=== PATIENT | female | born 1970 | race Caucasian/White ===

== ENCOUNTER 2017-03-18 16:27 | Emergency (ER) | payer OTHER ==
[~2017-03-18] VITALS: Ht 152.4 cm; Wt 89.4 kg
[~2017-03-18 16:27] MED LIST: BACTRIM DS TAB1 EACH PO; IBUPROFEN800 M1 PO; METFORMIN HCL500 M3 PO; NORCO 5-325 TA1 EACH PO
--- NOTE | 2017-03-18 18:06 | ED GI/GU/ABDOMINAL COMPLAINT ---
History of Present Illness General Chief Complaint: Abdominal Pain/Flank Pain Stated Complaint: ABD PAIN ? KIDNEY STONE PER PMD Source: patient, old records Exam Limitations: no limitations Vital Signs & Intake/Output Vital Signs & Intake/Output Vital Signs Date Time Temp Pulse Resp B/P Pulse O2 O2 Flow FiO2 Ox Delivery Rate 03/18 2208 98.8 72 16 110/59 99 Room Air 03/18 1830 Room Air 03/18 1639 98.1 92 18 145/88 99 Room Air Allergies Coded Allergies: NO KNOWN ALLERGIES (11/18/16) Triage Note: SENT BY DR BARTHOLOMEW TO RULE OUT KIDNEY STONES, PT COMPLAINS OF R FLANK PAIN AND BLOOD WHEN SHE WIPES. Triage Nurses Notes Reviewed? yes LMP (ages 10-50): hysterectomy ? N Is pt currently ? No Onset: Abrupt Duration: day(s): (3), constant Timing: recent history Quality/Severity: cramping, moderate, sharpness Severity Numbers: 8 Location: right flank, right lower quadrant Radiation: flank Activities at Onset: none Prior Abdominal Problems: similar symptoms No Modifying Factors: none Associated Symptoms: DENIES HPI: 46-year-old female with history of ovarian cyst hysterectomy cholecystectomy gastric bypass 1 month ago presents emergency room complaining of right lower quadrant pain radiating to the right flank and lower back for the past 3 days associated hematuria. Patient states that she called Dr. Bartholomew referred her to the ER for workup for kidney stones. She has a history of similar episodes which brought her to the ER in November and was seen by myself. She was diagnosed with an adnexal cyst at the time requiring exploratory laparotomy eye doctor Puma her PROGRAM ADMINISTRATOR. The patient denies dysuria urgency frequency. She denies nausea vomiting or diarrhea no fever or chills no vaginal bleeding or discharge (ELVIA CHATTERJEE) Reconcile Medications Oxycodone HCl/Acetaminophen (Percocet 5-325 MG Tablet) 5 MG-325 MG TABLET 1 TAB PO 4 TIMES/DAY pain (ONEIL PERDOMO) Past History Travel History Traveled to [place] past 21 day No Medical History Any Pertinent Medical History? see below for history Neurological: NONE EENT: NONE Cardiovascular: NONE Respiratory: NONE Gastrointestinal: NONE Hepatic: NONE Renal: NONE Musculoskeletal: NONE Psychiatric: NONE Endocrine: NIDDM Blood Disorders: NONE Cancer(s): NONE PROGRAM ADMINISTRATOR/Reproductive: OVARIAN CYST Surgical History Surgical History: cholecystectomy, hysterectomy Psychosocial History Who do you live with Family Services at Home None What is your primary language Dominican Tobacco Use: Never used ETOH Use: denies use Illicit Drug Use: denies illicit drug use Family History Hx Contributory? No (ELVIA CHATTERJEE) Review of Systems Review of Systems Constitutional: Reports: see HPI. All Other Systems: Reviewed and Negative Comments Review of systems: See HPI, All other systems negative. Constitutional, no chills no fever, no malaise HEENT: No visual changes no sore throat no congestion Cardiovascular: No chest pain , no palpitation , Skin, no jaundice no rashes, no change in skin Respiratory: No dyspnea no cough no sputum GI: No nausea no vomiting, no diarrhea, no bloating/constipation : No dysuria hematuria, no frequency, no discharge Muscle skeletal: No joint pain, no back pain, no neck pain, Neurologic: No numbnessno headache Psych: No stress Heme/endocrine: No bruising no bleeding Immunology: No lymphadenopathy (ELVIA CHATTERJEE) Physical Exam Physical Exam General Appearance: well developed/nourished, no apparent distress, alert, awake Gastrointestinal: soft Comments: Well-developed well-nourished person in no acute distress HEENT: Normal EENT exam; PERRL, EOMI, HEAD is atraumatic. moist mucous membranes. Neck: Supple,, normal range of motion Back: Nontender, no CVA tenderness. Full range of motion Cardiovascular: Regular rate and rhythms no murmurs rubs Respiratory: No respiratory distress. Patient speaking in full complete sentences. Breath sounds clear to auscultation bilaterally: NO W/R/R Abdomen: Soft, nontender nondistended, no appreciable organomegaly. Normal bowel sounds. No rebound/guarding, No appreciable enlargement of the abdominal aorta, No ascites. Extremity: No edema, full range of motion of extremities Neuro: Alert oriented x3, motor sensory normal, There were no obvious focal neurologic abnormalities. Skin: No appreciable rash on exposed skin, skin is warm and dry. Psych: Mood and affect is normal, memory and judgment is normal. Core Measures ACS in differential dx? No Severe Sepsis Present: No Septic Shock Present: No (ELVIA CHATTERJEE) Progress Differential Diagnosis: kidney stone, ovarian cyst, ovarian torsion, pancreatitis, PID/cervicitis, perforated viscous, SBO, UTI/pyelo Plan of Care: Orders Procedure Date/time Status Saline Lock 03/18 1813 Active COMPREHENSIVE METABOLIC PANEL 03/18 1813 Complete CBC WITHOUT DIFFERENTIAL 03/18 1813 Complete Add-on Test (ER Only) 03/18 170 Active URINE 03/18 1645 Complete URINALYSIS 03/18 1643 Complete Current Medications Sig/Conrad Start time Last Medication Dose Stop Time Status Admin Morphine Sulfate 2 MG ONCE ONE 03/18 1945 CAN (Morphine) 03/18 1946 Laboratory Tests 03/18/171835: Anion Gap 13, Estimated GFR > 60, BUN/Creatinine Ratio 8.8, Glucose 99, Calcium 9.2, Total Bilirubin 0.7, AST 65 H, ALT 121 H, Alkaline Phosphatase 89, Total Protein 6.8, Albumin 4.0, Globulin 2.8, Albumin/Globulin Ratio 1.4, CBC w Diff NO MAN DIFF REQ, RBC 5.48 H, MCV 80.4 L, MCH 26.5 L, RDW 15.0 H, MPV 9.7, Gran % 62.1, Lymphocytes % 27.4, Monocytes % 8.1, Eosinophils % 1.8, Basophils % 0.6, Absolute Granulocytes 4.0, Absolute Lymphocytes 1.8, Absolute Monocytes 0.5 , Absolute Eosinophils 0.1, Absolute Basophils 0, PUBS MCHC 33.0 03/18/171644: Urinalysis HEAVY H, Urine Color YEL, Urine Clarity HAZY H, Urine pH 7.0, Ur Specific [place] 1.020, Urine Protein TRACE H, Urine Ketones 15 H, Urine Nitrite NEG, Urine Bilirubin NEG@ICTO, Urine Urobilinogen 1.0, Ur Leukocyte Esterase SMALL H, Ur Microscopic SEDIMENT EXAMINED, Urine RBC 1-3, Urine WBC 5- 10 H, Ur Epithelial Cells MOD H, Urine Bacteria MANY H, Urine Mucus FEW, Urine Hemoglobin MOD H, Urine Glucose NEG, Urine Test NEGATIVE PT MED WITH TORADOL 30MG IV, IVNS, CT LABS ORDERED. CASE D/W DR REID Patient reports no improvement in pain with Toradol but discussed with her at length all of her lab results CAT scan findings lab work today and ultrasound ordered (CHRIS BUCHANAN,ELVIA) Diagnostic Imaging: Viewed by Me: CT Scan, Ultrasound. Discussed w/RAD: Radiology Read, CT Scan, Ultrasound. Radiology Impression: PATIENT: SUKHWINDER MCCULLOUGH PRESENT AGE: 46 PATIENT ACCOUNT NO: [id number] : 72 LOCATION: [facility] ORDERING PHYSICIAN: ELVIA BUCHANAN SERVICE DATE: 03/18/17 EXAM TYPE: CAT - CT ABD & PELVIS W/O IV CONTRAS EXAMINATION: CT ABDOMEN AND PELVIS WITHOUT CONTRAST CLINICAL INFORMATION: Right flank pain. COMPARISON: 11/18/2016. TECHNIQUE: Contiguous axial thin section helical images of the abdomen and pelvis were performed without oral or IV contrast. The data set was reformatted in the coronal and sagittal planes and reviewed on an independent workstation. DLP: 760 mGy-cm. FINDINGS: The visualized lung bases are clear. The visualized portions of the heart are unremarkable. The liver is of normal size and diffuse decreased attenuation without focal lesions nor intrahepatic biliary ductal dilation. The patient is status post cholecystectomy. Surgical clips are identified. Surgical chain sutures are identified about the stomach. The spleen, pancreas and right adrenal glands are unremarkable. There is stable fullness to the body of the left adrenal gland. Both kidneys are of normal size and attenuation without hydronephrosis or nephrolithiasis. There is no abdominal free fluid. There is neither mesenteric nor retroperitoneal lymphadenopathy. Normal unopacified loops of small and large bowel are identified. A normal appendix is identified. There is no pelvic free fluid. There is a 2.7 cm right adnexal cyst. The urinary bladder is unremarkable. There is neither pelvic nor inguinal lymphadenopathy. Bone windows: Neither sclerotic nor lytic bone lesions are identified. IMPRESSION: No evidence for acute abdominal or pelvic inflammatory or infectious processes. Hepatic steatosis. Status post cholecystectomy. Stable fullness to the left adrenal gland. 2.7 cm right adnexal cyst. DICTATED BY: VI SANTOS MD DATE/TIME DICTATED:03/18/171824 CAN REPAIRER:DALY DATE/TIME TRANSCRIBED:03/18/171824 CONFIDENTIAL, DO NOT COPY WITHOUT APPROPRIATE AUTHORIZATION. <Electronically signed in Other Vendor System> SIGNED BY: VI SANTOS MD 03/18/171835 Initial ED EKG: none Hand-Off Endorsed To: ONEIL PERDOMO Endorsed Time: 2100 Pending: ultrasound (ELVIA CHATTERJEE) Radiology Impression: SERVICE DATE: 03/18/17 EXAM TYPE: US - US- TRANSVAGINAL EXAMINATIONS: ULTRASOUND PELVIC, COMPLETE AND DOPPLER INTERROGATION CLINICAL INFORMATION: Right lower quadrant pain. COMPARISON: Same day abdominal and pelvic CT. TECHNIQUE: Transabdominal and transvaginal imaging was performed. Transvaginal imaging was performed for further evaluation of the adnexa. Doppler interrogation spectral analysis was performed. FINDINGS: The patient is status post hysterectomy. The right ovary measures 3.7 x 1.6 x 4.2 cm for a volume of 13.4 mL. There is an approximately 4.4 cm cyst adjacent to the right ovary. Normal arterial and venous flow is present. The left ovary is not identified. There is no pelvic free fluid. IMPRESSION: Status post hysterectomy. 4.4 cm cyst adjacent to the right ovary. Normal arterial and venous flow present to the right ovary. Left ovary not identified. DICTATED BY: VI SANTOS MD DATE/TIME DICTATED:03/18/172114 CAN REPAIRER:DALY Comments: 03/18/2017 9:56:51 PM Patient clinically looks well. Nontoxic-appearing. In no apparent distress. Ultrasound report discussed with patient. She is going to follow-up with her OB /PROGRAM ADMINISTRATOR doctor tomorrow. Return if any other concerns. (ONEIL PERDOMO) Departure Departure Disposition: HOME OR SELF CARE Condition: Stable Clinical Impression Primary Impression: Adnexal cyst Secondary Impressions: Abdominal pain Referrals: THANH SALAZAR,JEEVAN Segura (PCP/Family) Departure Forms: Customer Survey General Discharge Information (ELVIA CHATTERJEE) Departure Additional Instructions: Follow-up with your REAL ESTATE ACQUISITION ANALYST doctor. Return if any concerns worsening symptoms. Please go over all results of today's visit with your primary care doctor. Contact your primary care doctor to let them know you were here in the emergency room. There may be nonspecific findings which may not be related to your visit today here in the emergency room but may require further evaluation and chronic monitoring by your primary care doctor. If you had a laceration today the chance of foreign body always remains. You should follow-up with your primary care doctor for recheck in 3-5 days for a wound check. If you had an x-ray done there is a chance that a fracture could have been missed on initial read and you should follow-up with your primary care doctor for repeat x-rays if symptoms persist. If your blood pressure was elevated here in the emergency room please have rechecked by her primary care doctor within the next 48 hours by your primary care doctor. If you were prescribed a narcotic here in the emergency room or any type of controlled substances you're not allowed to drive while taking this medication or operate any type of heavy machinery. Narcotics can make you feel lightheaded dizziness nausea and can cause constipation. You may need to quill picking machine operator a stool softener. Thank you for choosing [facility] emergency room. Please return to the emergency room immediately if you have any other concerns worsening of symptoms. Prescriptions: Current Visit Scripts Oxycodone HCl/Acetaminophen (Percocet 5-325 MG Tablet) 1 TAB PO 4 TIMES/DAY #10 TAB (ONEIL PERDOMO) PA/PHOTOENGRAVING HELPER Co-Sign Statement Statement: ED Attending supervision documentation- [] I saw and evaluated the patient. I have also reviewed all the pertinent lab results and diagnostic results. I agree with the findings and the plan of care as documented in the PA's/PHOTOENGRAVING HELPER's documentation. X[X] I have reviewed the ED Record and agree with the PA's/PHOTOENGRAVING HELPER's documentation. [] Additions or exceptions (if any) to the PAs/PHOTOENGRAVING HELPER's note and plan are summarized below: [] (FRANKLIN SALAZAR,SHERRIE David)
--- NOTE | 2017-03-18 18:36 | CT SCAN REPORT ---
EXAMINATION: CT ABDOMEN AND PELVIS WITHOUT CONTRAST CLINICAL INFORMATION: Right flank pain. COMPARISON: 11/18/2016. TECHNIQUE: Contiguous axial thin section helical images of the abdomen and pelvis were performed without oral or IV contrast. The data set was reformatted in the coronal and sagittal planes and reviewed on an independent workstation. DLP: 760 mGy-cm. FINDINGS: The visualized lung bases are clear. The visualized portions of the heart are unremarkable. The liver is of normal size and diffuse decreased attenuation without focal lesions nor intrahepatic biliary ductal dilation. The patient is status post cholecystectomy. Surgical clips are identified. Surgical chain sutures are identified about the stomach. The spleen, pancreas and right adrenal glands are unremarkable. There is stable fullness to the body of the left adrenal gland. Both kidneys are of normal size and attenuation without hydronephrosis or nephrolithiasis. There is no abdominal free fluid. There is neither mesenteric nor retroperitoneal lymphadenopathy. Normal unopacified loops of small and large bowel are identified. A normal appendix is identified. There is no pelvic free fluid. There is a 2.7 cm right adnexal cyst. The urinary bladder is unremarkable. There is neither pelvic nor inguinal lymphadenopathy. Bone windows: Neither sclerotic nor lytic bone lesions are identified. IMPRESSION: No evidence for acute abdominal or pelvic inflammatory or infectious processes. Hepatic steatosis. Status post cholecystectomy. Stable fullness to the left adrenal gland. 2.7 cm right adnexal cyst.
[2017-03-18 19:06] LABS: ABSOLUTE BASOPHIL COUNT 0 /CUMM (0.0-0.2); ABSOLUTE EOSINOPHIL COUNT 0.1 /CUMM (0.0-0.7); ABSOLUTE LYMPH COUNT 1.8 /CUMM (1.2-3.4); ABSOLUTE MONOCYTE COUNT 0.5 /CUMM (0.10-0.60); BASOPHIL % 0.6 % (0.0-2.0); EOSINOPHIL % 1.8 % (0-5); GRANULOCYTE % 62.1 % (42.2-75.2); HEMATOCRIT 44.1 % (37-47); MEAN CORPUSCULAR HGB 26.5 PG (27.0-31.0); MEAN CORPUSCULAR VOLUME 80.4 FL (81.0-99.0); MEAN PLATELET VOLUME 9.7 FL (7.4-10.4); PLATELET COUNT 212 /CUMM (130-400); RED BLOOD CELL CT 5.48 /CUMM (4.20-5.40); WHITE BLOOD CELL COUNT 6.5 /CUMM (4.8-10.8)
--- NOTE | 2017-03-18 21:24 | ULTRASOUND REPORT ---
EXAMINATIONS: ULTRASOUND PELVIC, COMPLETE AND DOPPLER INTERROGATION CLINICAL INFORMATION: Right lower quadrant pain. COMPARISON: Same day abdominal and pelvic CT. TECHNIQUE: Transabdominal and transvaginal imaging was performed. Transvaginal imaging was performed for further evaluation of the adnexa. Doppler interrogation spectral analysis was performed. FINDINGS: The patient is status post hysterectomy. The right ovary measures 3.7 x 1.6 x 4.2 cm for a volume of 13.4 mL. There is an approximately 4.4 cm cyst adjacent to the right ovary. Normal arterial and venous flow is present. The left ovary is not identified. There is no pelvic free fluid. IMPRESSION: Status post hysterectomy. 4.4 cm cyst adjacent to the right ovary. Normal arterial and venous flow present to the right ovary. Left ovary not identified.
[2017-03-18] MEDS ORDERED: PERCOCET 5-3251 EACH PO (21:52)
[2017-03-18 22:08] VITALS: BP 110/59
== END 2017-03-18 22:09 ==
LOC: ERH 16:27
PROVIDERS: Physician Assistant Medical
DX: N83.201 Unspecified ovarian cyst, right side (principal)
CPT/HCPCS: 74176; 81001; 81025; 96361; 96374; 96375; J1885

== ENCOUNTER → 2017-03-28 | Day surgery (SDC) | payer OTHER ==
[~2017-03-28] VITALS: Ht 152.4 cm; Wt 89.4 kg
[~2017-03-28] MED LIST changes: +LEVSIN0.125 M1 PO; +PERCOCET 5-3251 EACH PO
--- NOTE | 2017-03-28 14:46 | Operative Report ---
Operative/Inv Procedure Report Surgery Date: 03/28/17 Name of Procedure: laparoscopy lysis of adhesions peritoneal washings Pre-Operative Diagnosis: pain Post-Operative Diagnosis: same Estimated Blood Loss: 50ml to 100ml Surgeon/Pneumatic Hoist Operator: FLOR SHARP MD Anesthesia: general endotracheal tube Operative/Procedure Note Note: Patient was taken the operating room placed supine position after adequate induction general anesthesia via endotracheal tube patient placed in dorsolithotomy position the vagina from dorsal fashion bladder was catheterized examination under anesthesia performed this point a single tooth tenaculum was placed on cervix gentle downward traction cervix the this remained in place at this point surgeon regowned and gloved at the level of the umbilicus stab incision was made to allow for the entry of Veress needle the abdomen was insufflated possibly 4 L of CO2 to liver dullness at which point review was removed a 10 mm trocar was inserted at the umbilicus sheath remained in place that sheath laparoscope placed under direct visualization a 5 mm port was placed 2 fingerbreadths of symptoms pubis in midline a peanut was placed through that port after peritoneal washings had been obtained using a blunt port lysis of adhesions were performed over the right ovary on the right ovary and tube were normal I's point the lysis of adhesions were performed over the left ovary and tube which were adherent to the bowel a J-hook was used for lysis of adhesions as well hemostasis was apparent a Lashawn was inserted to the left to the midline to strip picker the left ovary during lysis of adhesions. At the end of the case maximal CO2 was removed from the abdomen pictures were taken the incision at the umbilicus was oversewn using 0 on the skin was reapproximated both incisions using on 30 Marcaine was injected underneath skin at the end the case counts correct urine was clear the Zaldivar was removed patient was extubated and transferred recovery room awake alert counts correct
== END ==
LOC: STS 01:51
DX: R10.2 Pelvic and perineal pain (principal); N73.6 Female pelvic peritoneal adhesions (postinfective)
CPT/HCPCS: 88305; C9399; J0694; J2250; J2405

== ENCOUNTER 2017-04-24 18:47 | Emergency (ER) | payer OTHER ==
[~2017-04-24] VITALS: Ht 152.4 cm; Wt 83.0 kg
[~2017-04-24 18:47] MED LIST changes: -LEVSIN0.125 M1 PO
--- NOTE | 2017-04-24 19:38 | ED GI/GU/ABDOMINAL COMPLAINT ---
History of Present Illness General Chief Complaint: Abdominal Pain/Flank Pain Stated Complaint: ABD PAIN Source: patient, family, old records Exam Limitations: no limitations Vital Signs & Intake/Output Vital Signs & Intake/Output Vital Signs Date Time Temp Pulse Resp B/P B/P Pulse O2 O2 Flow FiO2 Mean Ox Delivery Rate 04/24 1859 97.5 73 16 130/80 98 Room Air Allergies Coded Allergies: NO KNOWN ALLERGIES (11/18/16) Reconcile Medications Oxycodone HCl/Acetaminophen (Percocet 5-325 MG Tablet) 5 MG-325 MG TABLET 1 TAB PO 4 TIMES/DAY pain Triage Note: PT STATES SHE WENT TO SEE HER PCP AND WAS SENT TO ED FOR POSSIBLE BOWEL OBSTRUCTION. PT STATES CRAMPING IN ABD AND STATES SHE HAS NOT BEEN ABLE TO EAT MUCH. NO BM SINCE YESTRDAY MORINING. PT WITH BILAT LOWER ABD PAIN AND STATES SHE IS BLOATED. PT HAS GASTRIC BYPASS IN JANUARY Triage Nurses Notes Reviewed? yes ? N Is pt currently ? No HPI: Patient sent in by her primary care physician for evaluation for potential bowel obstruction. Patient went to see her primary care physician for lower abdominal pain and anorexia. Patient states that yesterday she felt nauseous but not today. Patient states that her last bowel movement was yesterday. Patient states that she has crampy lower quadrant pain bilaterally that worsens whenever she eats. There are no mitigating factors. There is no radiation. She rates it as a 5 out of 10. Patient states that her primary care physician also told her that she was dehydrated. Past History Travel History Traveled to [place] past 21 day No Medical History Any Pertinent Medical History? see below for history Neurological: NONE EENT: NONE Cardiovascular: NONE Respiratory: NONE Gastrointestinal: NONE Hepatic: NONE Renal: NONE Musculoskeletal: NONE Psychiatric: NONE Endocrine: NONE Blood Disorders: NONE Cancer(s): NONE STAFF TRAINER/Reproductive: OVARIAN CYST Surgical History Surgical History: cholecystectomy, hysterectomy Psychosocial History Who do you live with Family Services at Home None What is your primary language Chinese Tobacco Use: Never used ETOH Use: denies use Illicit Drug Use: denies illicit drug use Family History Hx Contributory? No Review of Systems Review of Systems Constitutional: Reports: no symptoms. EENTM: Reports: no symptoms. Respiratory: Reports: no symptoms. Cardiovascular: Reports: no symptoms. GI: Reports: see HPI, abdominal pain, constipation, nausea. Genitourinary: Reports: no symptoms. Musculoskeletal: Reports: no symptoms. Skin: Reports: no symptoms. Neurological/Psychological: Reports: no symptoms. Hematologic/Endocrine: Reports: no symptoms. Immunologic/Allergic: Reports: no symptoms. All Other Systems: Reviewed and Negative Physical Exam Physical Exam General Appearance: well developed/nourished, alert, awake, mild distress Head: atraumatic, normal appearance Eyes: Bilateral: PERRL, EOMI. Ears, Nose, Throat, Mouth: hearing grossly normal, DRY MUCOSA Neck: normal inspection, supple, full range of motion Respiratory: normal breath sounds, chest non-tender, no respiratory distress, lungs clear Cardiovascular: regular rate/rhythm, normal peripheral pulses Gastrointestinal: normal bowel sounds, soft, no organomegaly, tenderness (LLQ & RLQ), NO REBOUND OR GUARDING Back: normal inspection, normal range of motion Extremities: normal range of motion Neurologic/Psych: no motor/sensory deficits, awake, alert, oriented x 3, normal gait, normal mood/affect Skin: intact, normal color, warm/dry Core Measures ACS in differential dx? No Severe Sepsis Present: No Septic Shock Present: No Progress Differential Diagnosis: appendicitis, biliary colic, bowel obstruction, cholecystitis, diverticulitis, gastritis, hepatitis, ischemic bowel, inflamm bowel dis, pancreatitis, peptic ulcer, PUD/GERD, SBO Plan of Care: Orders Procedure Date/time Status Add-on Test (ER Only) 04/24 2140 Active URINALYSIS 04/24 1937 Complete LIPASE 04/24 1937 Complete HUMAN BETA HCG SCREEN 04/24 1937 Complete COMPREHENSIVE METABOLIC PANEL 04/24 1937 Complete CBC WITHOUT DIFFERENTIAL 04/24 1937 Complete AMYLASE 04/24 1937 Complete Laboratory Tests 04/24/172101: Urine Color YEL, Urine Clarity HAZY H, Urine pH 6.0, Ur Specific [place] 1.025, Urine Protein NEG, Urine Ketones >=80, Urine Nitrite NEG, Urine Bilirubin NEG@ ICTO, Urine Urobilinogen 2.0 H, Ur Leukocyte Esterase SMALL H, Ur Microscopic SEDIMENT EXAMINED, Urine RBC 3-5, Urine WBC 5-10 H, Ur Epithelial Cells MANY H , Urine Bacteria MANY H, Granular Casts 1-3 H, Urine Hemoglobin LARGE H, Urine Glucose NEG 04/24/171954: Anion Gap 15, Estimated GFR > 60, BUN/Creatinine Ratio 16.7, Glucose 84, Calcium 9.5, Total Bilirubin 1.1, AST 50 H, ALT 94 H, Alkaline Phosphatase 95, Total Protein 7.4, Albumin 4.5, Globulin 2.9, Albumin/Globulin Ratio 1.6, Amylase 32, Lipase 119, Total Beta HCG NEGATIVE, CBC w Diff NO MAN DIFF REQ, RBC 5.32, MCV 80.3 L, MCH 27.0, RDW 14.9 H, MPV 9.5, Gran % 62.0, Lymphocytes % 26.9, Monocytes % 8.3, Eosinophils % 2.1, Basophils % 0.7, Absolute Granulocytes 3.9, Absolute Lymphocytes 1.7, Absolute Monocytes 0.5, Absolute Eosinophils 0.1, Absolute Basophils 0, PUBS MCHC 33.7 Diagnostic Imaging: Viewed by Me: CT Scan. Discussed w/RAD: CT Scan. Radiology Impression: PATIENT: SUKHWINDER MCCULLOUGH PRESENT AGE: 46 PATIENT ACCOUNT NO: [id number] : 72 LOCATION: [facility] ORDERING PHYSICIAN: SHERRIE REID MD SERVICE DATE: 04/24/17 EXAM TYPE: CAT - CT ABD & PELVIS W ORAL & IV CO EXAMINATION: CT ABDOMEN AND PELVIS WITH CONTRAST CLINICAL INFORMATION: Bariatric protocol. Gastric bypass. COMPARISON: CT abdomen pelvis 03/18/2017 . Transvaginal ultrasound 03/18/2017. TECHNIQUE: Multidetector volumetric imaging was performed of the abdomen and pelvis after the IV administration of 95 mL of Optiray 320 intravenous contrast. Sagittal and coronal reformatted images were obtained on the technologist's workstation. DLP: 426.85 mGy-cm FINDINGS: LUNG BASES: The visualized lung bases are unremarkable. LIVER, GALLBLADDER, AND BILIARY TREE: The liver is normal in size, shape, and attenuation. No focal hepatic lesion or biliary ductal dilatation is present. Status post cholecystectomy. No bile duct dilatation. PANCREAS: Unremarkable. SPLEEN: Spleen measures 13.8 cm AP. ADRENAL GLANDS: Stable fullness of the left adrenal gland. Right adrenal gland is normal. KIDNEYS AND URETERS: The kidneys are normal in size, shape, and attenuation. No hydronephrosis, hydroureter, or calculi seen. No perinephric stranding. BLADDER: Unremarkable. GASTROINTESTINAL TRACT: Status post gastric bypass. No bowel obstruction. Small bowel loops are normal. No acute change of large bowel. Moderate volume of stool in the colon. The appendix is normal. ABDOMINAL WALL: No significant hernia is appreciated. LYMPH NODES: Normal. VASCULAR: Unremarkable. PELVIC VISCERA: Status post hysterectomy. Stable right adnexal cyst measuring 4.5 x 2.3 x 2 cm. OSSEOUS STRUCTURES: Unremarkable. IMPRESSION: 1. Status post gastric bypass. No acute change of bowel. 2. Status post hysterectomy. Stable right adnexal cyst. DICTATED BY: MATEO PADILLA MD DATE/TIME DICTATED:04/24/172111 RECYCLE DRIVER :DALY DATE/TIME TRANSCRIBED:04/24/172111 CONFIDENTIAL, DO NOT COPY WITHOUT APPROPRIATE AUTHORIZATION. <Electronically signed in Other Vendor System> SIGNED BY: MATEO PADILLA MD 04/24/172122 Initial ED EKG: none Comments: D/W DR. LR Departure Departure Disposition: HOME OR SELF CARE Condition: Stable Clinical Impression Primary Impression: Lower abdominal pain, unspecified Referrals: THANH SALAZAR,JEEVAN Segura (PCP/Family) Additional Instructions: DRINK PLENTY OF FLUIDS RETURN FOR ANY CONCERNS Departure Forms: Customer Survey General Discharge Information Prescriptions: Current Visit Scripts Hyoscyamine (Levsin) 1 TAB PO Q4 PRN ABDOMINAL PAIN #20 TAB
[2017-04-24 20:14] LABS: ABSOLUTE BASOPHIL COUNT 0 /CUMM (0.0-0.2); ABSOLUTE EOSINOPHIL COUNT 0.1 /CUMM (0.0-0.7); ABSOLUTE GRANULOCYTE CT 3.9 /CUMM (1.4-6.5); ABSOLUTE LYMPH COUNT 1.7 /CUMM (1.2-3.4); ABSOLUTE MONOCYTE COUNT 0.5 /CUMM (0.10-0.60); BASOPHIL % 0.7 % (0.0-2.0); EOSINOPHIL % 2.1 % (0-5); HEMATOCRIT 42.8 % (37-47); MEAN CORPUSCULAR HGB CONC 33.7 G/DL (33.0-37.0); MEAN CORPUSCULAR VOLUME 80.3 FL (81.0-99.0); MEAN PLATELET VOLUME 9.5 FL (7.4-10.4); PLATELET COUNT 219 /CUMM (130-400); RBC DISTRIBUTION WIDTH 14.9 % (11.5-14.5); RED BLOOD CELL CT 5.32 /CUMM (4.20-5.40); WHITE BLOOD CELL COUNT 6.4 /CUMM (4.8-10.8)
--- NOTE | 2017-04-24 21:23 | CT SCAN REPORT ---
EXAMINATION: CT ABDOMEN AND PELVIS WITH CONTRAST CLINICAL INFORMATION: Bariatric protocol. Gastric bypass. COMPARISON: CT abdomen pelvis 03/18/2017 . Transvaginal ultrasound 03/18/2017. TECHNIQUE: Multidetector volumetric imaging was performed of the abdomen and pelvis after the IV administration of 95 mL of Optiray 320 intravenous contrast. Sagittal and coronal reformatted images were obtained on the technologist's workstation. DLP: 426.85 mGy-cm FINDINGS: LUNG BASES: The visualized lung bases are unremarkable. LIVER, GALLBLADDER, AND BILIARY TREE: The liver is normal in size, shape, and attenuation. No focal hepatic lesion or biliary ductal dilatation is present. Status post cholecystectomy. No bile duct dilatation. PANCREAS: Unremarkable. SPLEEN: Spleen measures 13.8 cm AP. ADRENAL GLANDS: Stable fullness of the left adrenal gland. Right adrenal gland is normal. KIDNEYS AND URETERS: The kidneys are normal in size, shape, and attenuation. No hydronephrosis, hydroureter, or calculi seen. No perinephric stranding. BLADDER: Unremarkable. GASTROINTESTINAL TRACT: Status post gastric bypass. No bowel obstruction. Small bowel loops are normal. No acute change of large bowel. Moderate volume of stool in the colon. The appendix is normal. ABDOMINAL WALL: No significant hernia is appreciated. LYMPH NODES: Normal. VASCULAR: Unremarkable. PELVIC VISCERA: Status post hysterectomy. Stable right adnexal cyst measuring 4.5 x 2.3 x 2 cm. OSSEOUS STRUCTURES: Unremarkable. IMPRESSION: 1. Status post gastric bypass. No acute change of bowel. 2. Status post hysterectomy. Stable right adnexal cyst.
[2017-04-24] MEDS ORDERED: LEVSIN0.125 M1 PO (21:44)
[2017-04-24 21:50] VITALS: BP 102/64
== END 2017-04-24 21:50 ==
LOC: ERH 18:47
PROVIDERS: Emergency Medicine
DX: R10.31 Right lower quadrant pain (principal); R10.32 Left lower quadrant pain
CPT/HCPCS: 74177; 81001; 87086; 96361; 96374